=== PATIENT | female | born 1970 | race American Indian/Alaskan Native ===

== ENCOUNTER 2017-03-22 15:05 | Outpatient (CLI) | payer OTHER ==
--- NOTE | 2017-03-23 02:43 | Ultrasound Report ---
FINAL REPORT EXAM: US ABDOMEN LIMITED HISTORY: RUQ PAIN TECHNIQUE: Routine imaging was obtained of the right upper outer quadrant. FINDINGS: The gallbladder has been removed. The common bile duct measures 9.3 millimeters in diameter which may be normal in a post cholecystectomy patient. There is no intrahepatic ductal dilatation. The liver is normal size and echotexture. The pancreas is normal size and echotexture. The right kidney shows no evidence of hydronephrosis. The right kidney measures 10.8 cm x 5.1 cm x 5 cm. Free fluid is not seen. IMPRESSION: Cholecystectomy. 9.3 millimeter in diameter common bile duct which may be normal in a post cholecystectomy patient.
--- NOTE | 2017-03-23 08:40 | Vascular Lab Report ---
Right Lower Extremity Venous Duplex Study: Reason for Exam: Pain of the right lower extremity. Comments on the Right: All veins visualized are freely compressible without evidence of internal echogenicity. Flow is spontaneous and phasic throughout. No evidence of acute or chronic thrombus is seen in any of the vessels visualized. Comments on the Left: A limited duplex study was done of the proximal veins of the left lower extremity. All veins visualized are freely compressible without evidence of internal echogenicity. Flow is spontaneous and phasic throughout. No evidence of acute or chronic thrombus is seen in any of the vessels visualized. Impression: No evidence of acute or chronic deep venous thrombosis in the right lower extremity.
== END 2017-03-22 15:06 | disposition home or self-care (01) ==
LOC: VAS 15:05
PROVIDERS: ATTEND Internal Medicine
DX: R10.11 Right upper quadrant pain (principal); M79.604 Pain in right leg; Z90.49 Acquired absence of other specified parts of digestive tract
CPT/HCPCS: 76705